=== PATIENT | male | born 1950 | race Caucasian/White ===

== ENCOUNTER 2018-06-17 19:27 | Emergency (ER) | payer MEDICARE, OTHER ==
[~2018-06-17] VITALS: Ht 177.8 cm; Wt 84.1 kg
[2018-06-17 19:31] VITALS: Ht 177.8 cm; Wt 84.1 kg
[2018-06-17] MEDS ORDERED: LIPITOR20 MG PO (19:36)
[2018-06-17] MEDS ORDERED: PLAVIX75 MG PO (19:36)
[2018-06-17] MEDS ORDERED: NITROQUICK0.4 MG SL (19:36)
[2018-06-17] MEDS ORDERED: VITAMIN D2000 UNIT PO (19:37)
[2018-06-17] MEDS ORDERED: COREG6.25 MG PO (19:37)
[2018-06-17] MEDS ORDERED: ALPHAGAN P15 ML RIGHT EYE (19:37)
[2018-06-17] MEDS ORDERED: ATARAX 25 MG TA25 MG PO (19:38)
[2018-06-17] MEDS ORDERED: XALATAN 0.0052.5 ML EACH EYE (19:38)
[2018-06-17] MEDS ORDERED: OMEPRAZOLE20 M1 (19:38)
[2018-06-17] MEDS ORDERED: ACTIGALL 300 M300 MG PO (19:39)
[2018-06-17] MEDS ORDERED: TRAZODONE HCL50 MG PO (19:39)
[2018-06-17] MEDS ORDERED: KENALOG 0.1 % O15 GM TOPICAL (19:39)
[2018-06-17] MEDS ORDERED: ZOLOFT100 MG PO (19:39)
[2018-06-17 20:12] LABS: BASOPHILS 0.1 % (0-2); EOSINOPHILS 0 % (0-7); HEMATOCRIT 34.4 % (42.0-54.0); HEMOGLOBIN 11.1 g/dL (13.5-17.5); IMMATURE GRANULOCYTES 0.4 % (0-5); MCH 25.3 pg (26.0-34.0); MCHC 32.3 g/dL (31.0-37.0); MCV 78.4 fL (80.0-100.0); MEAN PLATELET VOLUME 9.5 fL (7.4-10.4); MONOCYTES 10.6 % (2-11); NEUTROPHILS 80.9 % (40-80); PLATELET COUNT 146 10x3/uL (130-400); RBC 4.39 10x6/uL (4.20-6.10); WBC 8.5 10x3/uL (4.8-10.8)
[2018-06-17 20:37] LABS: ALBUMIN 3.3 g/dL (3.4-5.0); ALKALINE PHOSPHATASE 272 U/L (46-116); ALT (SGPT) 72 U/L (10-68); BILIRUBIN - TOTAL 1.99 mg/dL (0.2-1.3); CALC OSMOLALITY 267 mosm/kg (275-300); CALCIUM 8.6 mg/dL (8.5-10.1); CARBON DIOXIDE 25.8 mmol/L (21.0-32.0); CHLORIDE - SERUM 97 mmol/L (98-107); CREATINE KINASE 50 UL (21-232); CREATININE - SERUM 1.3 mg/dL (0.6-1.3); GLUCOSE 121 mg/dL (74-106); POTASSIUM - SERUM 4.1 mmol/L (3.5-5.1); PROTEIN - SERUM 7.5 g/dL (6.4-8.2); SODIUM 132 mmol/L (136-145); UREA NITROGEN 17 mg/dL (7-18); eGFR NON AFRICAN AMERICAN 58 mL/min (90-120)
[2018-06-17 20:38] LABS: TROPONIN-I < 0.017 ng/mL (0.000-0.060)
[2018-06-17 20:53] LABS: APPEARANCE CLEAR (CLEAR); BILIRUBIN 1+ (NEGATIVE); COLOR DK YELLOW (YELLOW); GLUCOSE NEGATIVE (NEGATIVE); KETONE NEGATIVE (NEGATIVE); NITRITE NEGATIVE (NEGATIVE); PROTEIN NEGATIVE (NEGATIVE); SPECIFIC GRAVITY 1.005 (1.005-1.020)
[2018-06-18] MEDS ORDERED: VIBRAMYCIN 100100 MG PO (01:23)
[2018-06-18 01:29] VITALS: BP 141/51
[2018-06-22 13:19] LABS: EHRLICHIA CHAFF IGG Negative (Neg:<1:64); EHRLICHIA CHAFF IGM Negative (Neg:<1:20); HGE IGG TITER Negative (Neg:<1:64); HGE IGM TITER Negative (Neg:<1:20)
[2018-06-22 15:25] LABS: RMSF IGM 0.98 index (0.00-0.89)
== END 2018-06-18 01:29 | disposition home or self-care (01) ==
LOC: D.ER 19:27
PROVIDERS: Family Medicine
DX: R50.9 Fever, unspecified (principal)